=== PATIENT | male | born 2005 | race Caucasian/White ===

== ENCOUNTER 2025-02-14 09:01 | Emergency (ER) | payer OTHER ==
[~2025-02-14] VITALS: Ht 175.3 cm; Wt 59.7 kg
[2025-02-14] MEDS ORDERED: VENTAER INH (09:08)
[2025-02-14] MEDS ORDERED: ONDA-282 PO (11:36)
[2025-02-14 11:53] VITALS: BP 123/87; TEMP 98; O2SAT 100
== END 2025-02-14 11:55 | disposition home or self-care (01) ==
LOC: M ED 09:01
DX: S06.0X0A Concussion without loss of consciousness, initial encounter (principal); F10.10 Alcohol abuse, uncomplicated; W01.198A Fall on same level from slipping, tripping and stumbling with subsequent striking against other object, initial encounter; J45.909 Unspecified asthma, uncomplicated; Y92.009 Unspecified place in unspecified non-institutional (private) residence as the place of occurrence of the external cause; Y93.89 Activity, other specified; Y99.9 Unspecified external cause status; Z79.52 Long term (current) use of systemic steroids; Z79.83 Long term (current) use of bisphosphonates

== ENCOUNTER → 2025-03-28 | Outpatient (CLI) | payer OTHER ==
[~2025-03-28] MED LIST: METHACHOLINE KIT (6 VIAL.NEB PREMIX) INH ONE; ONDA-282 PO; VENTAER INH
== END ==
LOC: M CARPUL 12:22
PROVIDERS: ATTEND Physician Assistant
DX: R06.00 Dyspnea, unspecified (principal)